=== PATIENT | female | born 1980 | race Caucasian/White ===

== ENCOUNTER 2024-09-06 11:58 | Inpatient (IN) | payer MEDICARE, MEDICAID, SELFPAY ==
[2024-09-06] VITALS (8 sets, daily range): BP systolic 132–192; BP diastolic 68–100; PULSE 69–88; RESP 16–18; TEMP 36.6–37.2; O2SAT 97–99; BMI 31.7
[2024-09-06 12:33] LABS: Bacteria 0 SEEN /hpf (None Seen); Mucous, Urine 0 SEEN /hpf (<or=2+); Red Blood Cells-Urine 0 SEEN /hpf (0-5); Squamous Epithelial Cells - UA 0 SEEN /hpf (5-10)
[2024-09-06 12:34] LABS: Color, Urine Yellow (Yellow); Glucose, Dipstick Normal (Normal); Ketone-Dipstick Negative (Negative); Leukocyte Esterase-Dipstick 500 /ul (Negative); Nitrite-Dipstick Positive (Negative); Occult Blood-Urine 150 /ul (Negative); Protein-Dipstick 500 mg/dl (Negative); Urine Bilirubin Dipstick Negative (Negative); Urine Clarity Turbid (Clear); Urine Urobilinogen Normal (Normal)
[2024-09-06 12:34] LABS: Absolute Lymphocyte Count 1.32 X10^3/uL (0.83-4.51); Absolute Neutrophil Count 17.3 X10^3/uL (2.0-7.7); Basophil# 0.08 X10^3/uL; Basophil% 0.4 % (0-1); Eosinophil# 0.07 X10^3/uL; Eosinophils% 0.3 % (0-5); Hematocrit 42.4 % (37-47); Hemoglobin 14.9 g/dL (12.0-15.0); Lymphocyte # 1.32 X10^3/ul (0.83-4.51); Lymphocyte % 6.6 % (19-41); Mean Corp Hgb Conc 35.1 g/dL (32-36); Mean Corpuscular Hgb 35.1 pg (27.0-32.0); Mean Corpuscular Volume 99.8 fL (81-99); Mean Platelet Vol. 10.1 fl (6.2-12.0); Monocyte# 1.04 X10^3/uL; Monocyte% 5.2 % (0-10); NRBC Flagged by Analyzer 0 % (0-5); Neutrophil # 17.34 X10^3/uL (2.7-7.7); Neutrophil % 86.6 % (47-70); Platelet Count 281 K/mm3 (150-450); RBC Distribution Width CV 12.6 % (11.6-14.6); RBC Distribution Width SD 45.5 fl (35.1-43.9); Red Blood Count 4.25 M/mm3 (4.2-5.4)
[2024-09-06 12:40] LABS: White Blood Cells >100 SEEN /hpf (0-5)
--- NOTE | 2024-09-06 13:14 | EDS_ITS ---
HPI History of Present Illness Chief Complaint: Complaint Detail of Chief Complaint: Recurrent urinary tract infection Informant: patient and spouse/S.O. Onset/Context/Timing Onset: Yesterday Context: Sudden Onset Timing: Intermittent Quality: Frequency and burning with urination Location: Urologic Maximum Severity: Moderate Worsened by: Urination Relieved by: Nothing Associated Symptoms Associated Symptoms: Suprapubic discomfort Narrative Narrative: Patient is a 44-year-old woman who has a history of kidney failure and is a recipient of a pancreas and liver. She presents with dysuria and frequency. She was treated with Macrobid initially for UTI diagnosed at [facility] in July. Creatinine was 1.04 on August 03 with an estimated GFR 68. Patient started taking Macrobid which she had leftover from her visit to the urgent care in July. She denied objective fever. She did have subjective fever with chills. She denies nausea, vomiting or diarrhea. She denies lower abdominal pain. There is no history of trauma. Prior similar symptoms: Yes Recent Illness/Hospitalization: Yes [facility] Home Medications ?Medication ?Instructions ?Recorded ?Last Taken ?Type Acetazolamide 250 mg PO BID 05/28/13 Unknown History Brimonidine 1 drp BID 05/28/13 Unknown History Dorzolamide Hydrochloride/Ti 1 drp DAILY 05/28/13 Unknown History amlodipine 10 mg tablet 10 mg PO DAILY 05/28/13 06/02/13 History aspirin 81 mg chewable tablet 81 mg PO DAILY 05/28/13 Unknown History atropine 1 % eye drops 1 drp BID 05/28/13 Unknown History calcium acetate(phosphat bind) 667 3 cap BC TIDCM 05/28/13 Unknown History mg capsule epoetin eliz 10,000 unit/mL 1.1 ml SQ 05/28/13 Unknown History injection solution (Epogen) ergocalciferol (vitamin D2) 1,250 50,000 unit PO QMONTH 05/28/13 Unknown History mcg (50,000 unit) capsule (Vitamin D2) escitalopram oxalate 20 mg tablet 10 mg PO DAILY 05/28/13 Unknown History (Lexapro) furosemide 40 mg tablet 40 mg PO DAILY 05/28/13 Unknown History hydralazine 50 mg tablet 50 mg PO TID 05/28/13 Unknown History insulin aspart U-100 100 unit/mL 65 units SQ DAILY 05/28/13 Unknown History (3 mL) subcutaneous pen (Novolog FlexPen U-100 Insulin aspart) insulin glargine 100 unit/mL (3 50 units SQ DAILY 05/28/13 Unknown History mL) subcutaneous pen (Lantus Solostar U-100 Insulin) labetalol 300 mg tablet (Trandate) 300 mg PO BID 05/28/13 06/02/13 History latanoprost 0.005 % eye drops 1 drp QHS 05/28/13 Unknown History levetiracetam 750 mg tablet 375 mg PO BID 05/28/13 06/02/13 History (Keppra) lidocaine-prilocaine 2.5 %-2.5 % 1 applic topical PRN PRN FOR 05/28/13 Unknown History topical kit DIALYSIS TO [facility] losartan 100 mg tablet (Cozaar) 100 mg PO DAILY 05/28/13 06/02/13 History multivitamin with folic acid 400 1 tab PO DAILY 05/28/13 Unknown History mcg tablet (Thera) oxycodone-acetaminophen 7.5 mg-500 1 tab PO Q6H PRN PRN Pain 05/28/13 Unknown History mg tablet (Percocet) prednisolone acetate 1 % eye 1 drp 4X/DAY 05/28/13 Unknown History drops,suspension Allergy/AdvReac Type Severity Reaction Status Date / Time Heparin Analogues Allergy Unknown Verified 09/06/24 11:59 Penicillins Allergy Unknown Verified 09/06/24 11:59 Social History Smoking Status: Never smoker ROS [facility] ED Constitutional Constitutional ED: Reports chills, fever(s) and subjective; Denies sweats or weight loss Eyes Eyes: Reports other Details: Patient unable to see out of her right eye and has 25% vision in left eye. ; Denies blurry vision or change in vision ENT ENT ED: Denies ear pain or rhinorrhea Cardiovascular Cardiovascular: Denies chest pain or palpitations Respiratory/Chest Respiratory/Chest: Denies cough, dyspnea or dyspnea on exertion Gastrointestinal Gastrointestinal: Reports abdominal pain; Denies constipation, diarrhea, melena or vomiting Genitourinary Genitourinary ED: Reports dysuria and urinary frequency; Denies hematuria Musculoskeletal Musculoskeletal: Denies arthralgias, back pain, myalgias or neck pain Integumentary Denies rash Neurologic Neurologic: Denies headache(s) or paresthesias Psychiatric Psychiatric: Denies anxiety Hematologic/Lymphatic Hematologic/Lymphatic: Reports systems reviewed and no addt'l complaints, except as documented EXAM Physical Exam Const Vital Signs: 09/06/24 11:59 09/06/24 11:59 09/06/24 13:59 Temperature 98 F Temperature Source Temporal Pulse Rate 71 71 Respiratory Rate 16 18 Blood Pressure 192/89 H 179/100 H 140/69 H Blood Pressure Mean 123 126 92 Pulse Ox 97 Oxygen Delivery Method Room Air 09/06/24 15:00 Temperature Temperature Source Pulse Rate 77 Respiratory Rate 17 Blood Pressure 132/77 H Blood Pressure Mean 95 Pulse Ox Oxygen Delivery Method Positive well nourished and well developed Constitutional Narrative: BMI is 31.7. General Appearance ED: well developed and NAD; Negative for cyanotic, diaphoretic or pallor HEENT Reports moist mucous membranes HEENT Narrative: Head is atraumatic no cephalic. Ears normal. Nares patent. Eyes Negative for PERRL or EOMs intact bilaterally Eyes Narrative: Patient has abnormal. Right orbit due to blindness. General Eye ED: Negative for pale conjunctiva or scleral icterus Neck no lymphadenopathy, supple and no JVD Resp normal respiratory effort and clear to auscultation bilaterally Cardio regular rate, regular rhythm, S1 normal heart sound, S2 normal heart sound and no murmurs GI normal to inspection, nondistended, normoactive bowel sounds, non-tender, non- distended and no masses Palpation: soft and tender suprapubic Back/Spine no CVA tenderness Extremity normal to inspection General Extremety ED: Negative for edema or tenderness General Extremity: Negative for edema Neuro oriented x3 and CN's II-XII intact bilaterally Sensorium / Orientation: alert Psych mental status grossly normal Skin no rashes or lesions noted, no wounds and skin turgor normal General Skin Exam: Negative for jaundice or pallor MDM MDM MDM Narrative Medical decision making narrative: Concern patient has a urinary tract infection. Will obtain UA and because she is on immunosuppressive meds will obtain CBC to assess white count differential as well as H&H. If any of these are abnormal we will obtain further testing to assess for sepsis/endorgan dysfunction. Spoke to her mother, Rupal, she has taken cephalexin in the past with no reaction. Her reaction to penicillin is a rash. Lab Data Attestation: I reviewed the patient's lab results. Lab results narrative: White count is elevated 20.0 thousand with 86% segs no bands. H&H 14 9 and 42.4 with slightly elevated indices. Urinalysis reveals protein, blood, nitrites and leukoesterase. Microscopic reveals greater than 100 WBCs no bacteria. She however did start antibiotics. Labs: Laboratory Results - last 24 hr 09/06/24 09/06/24 09/06/24 12:22 12:29 13:05 WBC 20.0 H RBC 4.25 Hgb 14.9 Hct 42.4 MCV 99.8 H MCH 35.1 H MCHC 35.1 RDW Std Deviation 45.5 H RDW Coeff of Jeremi 12.6 Plt Count 281 MPV 10.1 Immature Gran % (Auto) 0.900 Neut % (Auto) 86.6 H Lymph % (Auto) 6.6 L Jay % (Auto) 5.2 Eos % (Auto) 0.3 Baso % (Auto) 0.4 Absolute Neuts (auto) 17.3 H Absolute Lymphs (auto) 1.32 Nucleated RBC % 0 Sodium 138 Potassium 3.7 Chloride 111 H Carbon Dioxide 22.0 Anion Gap 5 BUN 16 Creatinine 1.14 H Estim Creat Clear Calc 67.33 Est GFR (MDRD) Af Amer 67 Est GFR (MDRD) Non-Af 55 L BUN/Creatinine Ratio 14.0 Glucose 139 H Lactic Acid 1.7 Calcium 8.9 Total Bilirubin 0.70 AST 12 L ALT 18 Alkaline Phosphatase 46 Total Protein 7.0 Albumin 3.4 Globulin 3.6 Albumin/Globulin Ratio 0.9 Urine Color Yellow Urine Clarity Turbid Urine pH 6.0 Ur Specific [place] 1.020 Urine Protein 500 H Urine Glucose (UA) Normal Urine Ketones Negative Urine Occult Blood 150 H Urine Nitrite Positive H Urine Bilirubin Negative Urine Urobilinogen Normal Ur Leukocyte Esterase 500 H Urine RBC 0 SEEN Urine WBC >100 SEEN Ur Squamous Epith Cells 0 SEEN Urine Bacteria 0 SEEN Urine Mucus 0 SEEN Comprehensive metabolic panel with slight elevation in creatinine of 1.14 which is slightly elevated from August 03. Estimated GFR is 55. Glucose is slight elevated 139 within the normal CO2 anion gap. Management Discussion w/another healthcare provider: Hospitalist (Dr. Caro he was made aware of transplant physicians recommendation. Plan is MedSurg observation status.) and Warehouse Picker (Call was placed to the post renal pancreatic transplant team. Spoke with the nurse affiliated with this department. She placed a page to the on-call physician. Spoke with Dr. Juan C Gilbert) Treatment and Re-Evaluation :: Spoke with the renal pancreas transplant on-call physician for [facility]. He recommended admission. If cultures are negative she can be discharged home. He recommended holding the CellCept which was started April 29. He asked that the hospitalist contact the transplant team if her cultures are positive. The name of the physician I spoke to is Dr. 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, Hyperglycemia, Elevated serum creatinine, Elevated blood pressure reading with diagnosis of hypertension Prescriptions: No Action Acetazolamide 250 mg PO BID Patient Comments: DIURETIC OR GLAUCOMA amlodipine 10 MG tablet 10 mg PO DAILY Patient Comments: BLOOD PRESSURE aspirin 81 MG tablet,chewable 81 mg PO DAILY Patient Comments: HEART atropine 1 DROP bottle 1 drp Each Eye BID Patient Comments: EYE DROP furosemide 40 MG tablet 40 mg PO DAILY Patient Comments: WATER PILL latanoprost 1 DROP bottle 1 drp Right Eye QHS Patient Comments: EYE DROP lidocaine-prilocaine 1 EACH kit 1 applic topical PRN PRN (Reason: FOR DIALYSIS TO [facility]) Patient Comments: DIALYSIS prednisolone acetate 1 DROP drops,suspension 1 drp Each Eye 4X/DAY Patient Comments: STEROID hydralazine 50 MG tablet 50 mg PO TID Patient Comments: BLOOD PRESSURE levetiracetam [Keppra] 750 MG tablet 375 mg PO BID Patient Comments: SEIZURES ergocalciferol (vitamin D2) [Vitamin D2] 50,000 UNIT capsule 50,000 unit PO QMONTH Patient Comments: VITAMIN labetalol [Trandate] 300 MG tablet 300 mg PO BID Patient Comments: HEART losartan [Cozaar] 100 MG tablet 100 mg PO DAILY Patient Comments: POTASSIUM epoetin eliz [Epogen] 10,000 UNIT/ML solution 1.1 ml SQ Patient Comments: THREE TIMES A WEEK for dialysis oxycodone-acetaminophen [Percocet] 1 EACH tablet 1 tab PO Q6H PRN PRN (Reason: Pain) Patient Comments: PAIN escitalopram oxalate [Lexapro] 20 MG tablet 10 mg PO DAILY Patient Comments: ANTIDEPRESSANT insulin aspart U-100 [Novolog FlexPen U-100 Insulin] 100 UNITS/ML insulin pen 65 units SQ DAILY Patient Comments: DIABETES calcium acetate(phosphat bind) 667 MG capsule 3 cap BC TIDCM Patient Comments: CALCIUM SUPPLEMENT insulin glargine [Lantus Solostar U-100 Insulin] 100 UNITS/ML insulin pen 50 units SQ DAILY Patient Comments: DIABETES multivitamin with folic acid [Thera] 1 TABLET tablet 1 tab PO DAILY Patient Comments: MULTI VITAMIN Brimonidine 1 drp Right Eye BID Patient Comments: BRIMONIDINE 0.2% FOR EYE Dorzolamide Hydrochloride/Ti 1 drp Right Eye DAILY Patient Comments: EYE Primary Care Provider: Mary Peralta Referrals: Mary Peralta MD [Primary Care Provider] - Print Language: Prydeinig Disposition Disposition: Acute Care Hospital [facility]
[2024-09-06] MEDS: Ceftriaxone 2 GM in 0.9% Normal Saline (50mL MB+) 50 ML IV (13:34)
[2024-09-06 13:42] LABS: ALB/GLOB Ratio 0.9 RATIO (0.9-2.4); AST(SGOT) 12 U/L (15-37); Alanine Aminotransfer ALT/SGPT 18 U/L (13-56); Albumin, Serum 3.4 g/dL (3.2-5.0); Alkaline Phosphatase 46 U/L (45-117); Anion Gap 5 (5-15); BUN 16 mg/dL (7-18); Calcium,Total 8.9 mg/dL (8.5-10.1); Chloride 111 mmol/L (98-107); Creatinine, Serum 1.14 mg/dL (0.55-1.02); EST Glomerular Filtration Rate 55 mL/min (>60); Est Glom Filt Rate - Afr Amer 67 mL/min (>60); Estimated Creatinine Clearance 67.33 ml/min; Globulin 3.6 g/dL (2.2-4.2); Glucose 139 mg/dL (74-106); Potassium 3.7 mmol/L (3.5-5.1); Sodium Level 138 mmol/L (136-145)
[2024-09-06 13:43] LABS: Lactic Acid 1.7 mmol/L (0.4-1.9)
--- NOTE | 2024-09-06 16:14 | PCM.HP.STD ---
HPI - General General Date of Admission: 09/06/24 Date of Service: 09/06/24 Chief Complaint: Dysuria and urinary frequency HPI Narrative KAM PEDERSON, is a 44 F who presented to the emergency department [facility] on 09/06/2024 with the chief complaint of urinary frequency and dysuria with associated suprapubic discomfort. Patient states before she went to [place] which was about 2 weeks ago she started having dysuria and urinary frequency and was placed on Macrobid. Her symptoms did not improve and she subsequently was placed on Macrobid and ciprofloxacin. She stated an urgent care told her that she grew out E. coli and other bacteria and she is not sure of the culture entirely. She stated she did start to feel better on the Macrobid and ciprofloxacin. The ciprofloxacin was a 5-day course and it sounds like the Macrobid was a longer course. She stated she finished the Cipro and then the Macrobid and had been symptom-free for about 3 days and then her symptoms came back. She is immunocompromise at baseline as she has a history of kidney and pancreas transplant. Her symptoms started again on Saturday and she had some extra Macrobid so she started this but her symptoms continued to get worse so she decided to present to the emergency department. Vital signs on presentation showed temperature of 98, heart rate 71, respiratory 16, initial blood pressure was 190/89 with a repeat of 140/69, and pulse ox is 97% on room air. CBC shows a significant leukocytosis with a white count of 20,000, she does have a left shift with an 86.6% neutrophilia. Chemistry panel shows normal electrolytes with a serum creatinine of 1.14. She states a week ago she was about 2.0. Serum glucose was 139 and she states she is not no longer insulin-dependent. Liver functions were unremarkable. Urine was turbid with a specific gravity of 1.02, 500 of protein, 150 of occult blood, positive for nitrites and leuk esterase with greater than 100 white cells per high-powered field but no bacteria. I suspect bacteria is negative as she has been on Macrobid recently. With her markedly elevated white count and a UA which is consistent for infection along with her history of transplant of both her kidney and pancreas Dr. Judd discussed the case with the transplant team at [facility] and spoke to the on-call physician at [facility] for the pancreas and kidney team. They asked that we hold her CellCept and treat her with antibiotics if her urine culture is positive they would like to be contacted and made aware for further discussion. However, after med reconciliation it does not appear she is currently taking CellCept. [facility] Medical History (Updated 09/06/24 @ 16:[address] Crystal Caro, DO) Hypertension Cerebrovascular disease Partial blindness History of retinal hemorrhage Seizure DM type 1 (diabetes mellitus, type 1) Chronic renal disease, stage IV Home Medications ?Medication ?Instructions ?Recorded ?Last Taken ?Type Acetazolamide 250 mg PO BID 05/28/13 Unknown History Brimonidine 1 drp BID 05/28/13 Unknown History amlodipine 10 mg tablet 10 mg PO DAILY 05/28/13 06/02/13 History aspirin 81 mg chewable tablet 81 mg PO DAILY 05/28/13 Unknown History atropine 1 % eye drops 1 drp BID 05/28/13 Unknown History ergocalciferol (vitamin D2) 1,250 50,000 unit PO QMONTH 05/28/13 Unknown History mcg (50,000 unit) capsule (Vitamin D2) escitalopram oxalate 20 mg tablet 10 mg PO DAILY 05/28/13 Unknown History (Lexapro) hydralazine 50 mg tablet 50 mg PO TID 05/28/13 Unknown History labetalol 300 mg tablet (Trandate) 300 mg PO BID 05/28/13 06/02/13 History multivitamin with folic acid 400 1 tab PO DAILY 05/28/13 Unknown History mcg tablet (Thera) prednisolone acetate 1 % eye 1 drp 4X/DAY 05/28/13 Unknown History drops,suspension carvedilol 6.25 mg tablet 6.25 mg PO Q12H 09/06/24 Unknown History famotidine 20 mg tablet 20 mg PO BID 09/06/24 Unknown History lisinopril 5 mg tablet 5 mg PO BID 09/06/24 Unknown History norethindrone 1 mg-ethinyl 1 tab PO DAILY 09/06/24 Unknown History estradiol 20 mcg (21)-iron 75 mg (7) tablet ([place] Fe 09/07 (28)) tacrolimus 1 mg capsule, 1 mg PO Q12H 09/06/24 Unknown History immediate-release valacyclovir 1 gram tablet 1,000 mg PO DAILY 09/06/24 Unknown History Allergy/AdvReac Type Severity Reaction Status Date / Time Heparin Analogues Allergy Unknown Verified 09/06/24 11:59 Penicillins Allergy Unknown Verified 09/06/24 11:59 Family History (Updated 09/06/24 @ 16:[address] Crystal Caro DO) Other Diabetes Heart disease Hypertension Surgical History (Updated 09/06/24 @ 16:[address] 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 Crystal Caro DO) Smoking Status: Never smoker alcohol intake: never substance use type: does not use ROS Constitutional Constitutional: Denies anorexia, change in weight, chills, fatigue, fever(s), malaise, night sweats, weakness or other Eyes Eyes: Reports loss of vision; Denies blurry vision, change in eye color, change in vision, discharge from eye(s), double vision, erythema, eye pain or other ENT HEENT: Denies abnormal hearing, dysphagia, ear pain, epistaxis, headache(s), hearing loss, nasal congestion, nasal discharge, post nasal drip, sinus pressure, sore throat or other Cardiovascular Cardiovascular: Denies chest pain, claudication, dyspnea on exertion, edema, lightheadedness, orthopnea, palpitations, paroxysmal nocturnal dyspnea, rapid heart rate, syncope or other Respiratory/Chest Respiratory/Chest: Denies cough, dyspnea, excessive phlegm production, hemoptysis, productive cough, shortness of breath at rest, shortness of breath with exertion, wheezing or other Gastrointestinal Gastrointestinal: Reports abdominal pain; Denies coffee ground emesis, constipation, diarrhea, dyspepsia, hematemesis, hematochezia, loose stools, melena, nausea, vomiting or other Genitourinary Genitourinary: Reports burning urination, dysuria, urinary frequency and other Details: Suprapubic abdominal pain ; Denies difficulty urinating, hematuria, nocturia, urinary hesitancy, urinary incontinence or urinary urgency Musculoskeletal Musculoskeletal: Denies arthralgias, back pain, joint pain, joint stiffness, joint swelling, myalgias, neck pain or other Neurologic Neurologic: Denies abnormal gait, abnormal speech, confusion, disequilibrium, dizziness, focal weakness, headache(s), numbness, paresthesias, seizure-like activity, seizures, syncope, tingling, tremor(s) or other Psychiatric Psychiatric: Reports anxiety; Denies depression, homicidal ideation, suicidal ideation or other Endocrine Endocrinology: Denies change in body appearance, cold intolerance, excessive sweating, heat intolerance, polydipsia, polyuria or other Hematologic/Lymphatic Hematologic/Lymphatic: Denies anemia, easy bleeding, easy bruising, lymphadenopathy or other Allergic/Immunologic Allergic/Immunologic: Denies rhinitis, hives, eczemia, asthma or other Vital Signs Vital Signs Vital Signs: 09/06/24 11:59 09/06/24 11:59 09/06/24 13:59 Temperature 98 F Temperature Source Temporal Pulse Rate 71 71 Respiratory Rate 16 18 Blood Pressure 192/89 H 179/100 H 140/69 H Blood Pressure Mean 123 126 92 Pulse Ox 97 Oxygen Delivery Method Room Air 09/06/24 15:00 Temperature Temperature Source Pulse Rate 77 Respiratory Rate 17 Blood Pressure 132/77 H Blood Pressure Mean 95 Pulse Ox Oxygen Delivery Method Weight Weight: 83.8 kg Body Mass Index (BMI) 31.7 Physical Exam Const alert and oriented x3 Constitutional Narrative: Obese, middle-aged, white female, appears comfortable at this time, significant other at bedside, appears comfortable, nontoxic, nursing at bedside HEENT normocephalic, head/scalp atraumatic, hearing grossly normal bilaterally and moist oral mucous membranes HEENT Narrative: Mallampati 3, no thrush Eyes EOMs intact bilaterally Eyes Narrative: No scleral icterus, patient with impaired vision bilaterally Resp normal respiratory effort, no retractions, no use of accessory muscles and clear to auscultation bilaterally Auscultation: Negative for rales, rhonchi or wheezes Cardio regular rate, regular rhythm, S1 normal heart sound, S2 normal heart sound, no rub, no gallops and no clicks; Negative for no murmurs Cardio Narrative: 2 out of 6 systolic murmur GI normal to inspection, nondistended, normoactive bowel sounds and soft to palpation GI Narrative: Mild suprapubic tenderness present Extremity no clubbing, cyanosis or edema Extremity Narrative: Pedal pulses are 2+, radial pulses are 2+ Neuro oriented x3, moves all extremities and no focal motor deficits Speech: speech normal Psych affect normal Psych Narrative: Mildly anxious, eye contact is good, patient interacts appropriately Results Lab / Micro Data 09/06/24 12:29 09/06/24 13:05 Labs: Laboratory Results - last 24 hr 09/06/24 12:22: Urine Color Yellow, Urine Clarity Turbid, Urine pH 6.0, Ur Specific [place] 1.020, Urine Protein 500 H, Urine Glucose (UA) Normal, Urine Ketones Negative, Urine Occult Blood 150 H, Urine Nitrite Positive H, Urine Bilirubin Negative, Urine Urobilinogen Normal, Ur Leukocyte Esterase 500 H, Urine RBC 0 SEEN, Urine WBC >100 SEEN, Ur Squamous Epith Cells 0 SEEN, Urine Bacteria 0 SEEN, Urine Mucus 0 SEEN 09/06/24 12:29: WBC 20.0 H, RBC 4.25, Hgb 14.9, Hct 42.4, MCV 99.8 H, MCH 35.1 H, MCHC 35.1, RDW Std Deviation 45.5 H, RDW Coeff of Jeremi 12.6, Plt Count 281, MPV 10.1, Immature Gran % (Auto) 0.900, Neut % (Auto) 86.6 H, Lymph % (Auto) 6.6 L, [place] % (Auto) 5.2, Eos % (Auto) 0.3, Baso % (Auto) 0.4, Absolute Neuts (auto) 17.3 H, Absolute Lymphs (auto) 1.32, Nucleated RBC % 0 09/06/24 13:05: Sodium 138, Potassium 3.7, Chloride 111 H, Carbon Dioxide 22.0, Anion Gap 5, BUN 16, Creatinine 1.14 H, Estim Creat Clear Calc 67.33, Est GFR (MDRD) Af Amer 67, Est GFR (MDRD) Non-Af 55 L, BUN/Creatinine Ratio 14.0, Glucose 139 H, Lactic Acid 1.7, Calcium 8.9, Total Bilirubin 0.70, AST 12 L, ALT 18, Alkaline Phosphatase 46, Total Protein 7.0, Albumin 3.4, Globulin 3.6, Albumin/Globulin Ratio 0.9 Assessment & Plan Assessment/Plan (1) Abnormal urinalysis: (2) Elevated blood pressure reading with diagnosis of hypertension: (3) Elevated serum creatinine: (4) Leukocytosis: (5) Pyuria: PLAN: Plan Abnormal UA with pyuria -Highly suspect this will be a complicated UTI with transplant history -No bacteria noted however patient's been on Macrobid -Patient had been on Macrobid and ciprofloxacin as an outpatient and has penicillin allergy -Will start meropenem 1 g Q8 -Cultures sent -If cultures are positive we are to contact [facility] transplant team--> Case was discussed with Dr. Juan C Ramirez at [facility] who is on-call and asked that they be contacted if the cultures are positive -Contact infectious disease given history of transplant Leukocytosis -Secondary to the above -Should trend down with antibiotics -Blood and urine cultures are pending Elevated serum creatinine -At 1.14 -Patient states about 2 weeks ago her creatinine was 2. Sounds like she fluctuates significantly -Will hydrate with 1 L normal saline as a specific gravity is slightly high -patient is on a single dolomite at home for her glaucoma Glaucoma with blindness -Continue home eyedrops -Significant other to stay with her while she is hospitalized as she gets very anxious related to her blindness and other medical issues Normal mammogram May the -Resolved with pancreatic transplant History of end-stage renal disease -Resolved since renal transplant History of renal and pancreatic transplant -We were instructed to hold CellCept however it does not appear she is currently on this -Continue tacrolimus -Continue valacyclovir and -It does not appear she is on any prednisone either Elevated blood pressure with history of hypertension -Continue home antihypertensives -As needed hydralazine available Seizure disorder -Sound like it is nonepileptic -Patient is not on any AEDs any longer -Patient reports are driven by anxiety GERD -Continue home famotidine Depression/anxiety -Continue home Lexapro DVT prophylaxis -Patient is allergic to heparin products -SCDs CODE STATUS -Full code Charges/Coding Visit Charges Inpatient E&M: 07323 Init Hosp L2
--- NOTE | 2024-09-06 16:59 | ED.RN ---
This RN attempted to do a med list [address] Caro was in the chart. This RN asked Dr Caro to close out of the med list and she stated she would. This RN still unable to complete med list because it is showing that she is in the chart.
--- NOTE | 2024-09-06 17:00 | CASEMGMT ---
Care Management Face to Face with patient for initial transition planning/care coordination assessment in the ED.? This marketing copywriter introduced self and role at [facility]. Patient lying in bed, asleep, not alert and/or oriented. Patient willing to participate in assessment and is able to answer all questions for patient appropriately.? Care providers, pharmacy, and demographics verified. Admitting Diagnosis: Complicated UTI with history of kidney and pancreas transplant Other diagnosis history: HTN, Hyperglycemia, history of kidney failure. PCP: Dr. Mary Peralta Specialists: Dr. Marin with the [facility], accounting teacher: Dr. Delgado, Transplant team through [facility]. Preferred Pharmacy: [facility] on [address] in [place]. Insurance: Medicare Part A and B and Medicaid. Prescription Benefit:?Yes Living Will/HPOA: No and not interested at this time. LNOK: Patient?s mother, Brandee Gonzalez.? Patient does not have any children. Living Arrangements: Patient currently lives with her mother, and patient?s significant other, Ronal. Patient denied having any environmental barriers or concerns at home. Transportation: No barriers identified. DME: (Some DME is shared by both patient as well as patient?s mother): Vertical platform lift inside patient?s garage, grab bars, shower chair, 2 walkers, motorized scooter, wheelchair, transport wheelchair, quad cane, rollator and a lift chair. HHC: Yes, through [facility]. Patient has a home health aide who comes out to help her with ADL?s and IADL?s M-F, 4 hours each day. SNF/Rehab: Denied any previous SNF or Rehab admissions. Community Resources: None currently and patient not interested. Behavioral Health History: Denied any formal diagnosis however patient stated anxiety. Patient goals: To be discharged home when medically ready. Disposition Plan: admission to acute; RN CM/SW to follow for discharge planning needs that may arise. Nanette Gonzalez, BALLOON ARTIST, HAMMER FITTER
[2024-09-06] MEDS: 0.9% Normal Saline (1000mL) 1,000 ML 75 ML IV (21:41)
[2024-09-06] MEDS: Meropenem 1 GM in 0.9% Normal Saline (100mL MB+) 100 ML IV (21:41)
[2024-09-06] MEDS: Carvedilol 6.25 MG Tablet PO (21:43)
[2024-09-06] MEDS: prednisoLONE eye drops (5 mL) 1 DROP OPTH.BTL 1 DRP EACH EYE (21:45)
[2024-09-06] MEDS: BRIMONIDINE 0.2% 5ML BOTTLE 1 DRP RIGHT EYE (21:45)
[2024-09-06] MEDS: Tacrolimus Anhydrous 1 MG Capsule PO (21:46)
[2024-09-06] MEDS: AcetaZOLAMIDE 250 MG Tablet PO (21:46)
[2024-09-06] MEDS: Lisinopril 5 MG Tablet PO (21:46)
[2024-09-06] MEDS: Famotidine 20 MG Tablet PO (21:46)
[2024-09-06] MEDS: Acyclovir 200 MG Capsule 400 MG PO (21:47)
[2024-09-06] MEDS: amLODIPine 10 MG Tablet PO (21:51)
[2024-09-07 04:00] VITALS: BP 121/60; PULSE 65; RESP 16; TEMP 36.9; O2SAT 99
[2024-09-07] MEDS: Meropenem 1 GM in 0.9% Normal Saline (100mL MB+) 100 ML IV ×3 (04:58→21:51)
[2024-09-07 06:45] LABS: Absolute Lymphocyte Count 2.15 X10^3/uL (0.83-4.51); Absolute Neutrophil Count 7.8 X10^3/uL (2.0-7.7); Basophil# 0.07 X10^3/uL; Basophil% 0.6 % (0-1); Eosinophil# 0.12 X10^3/uL; Eosinophils% 1.1 % (0-5); Hematocrit 39.2 % (37-47); Hemoglobin 13.4 g/dL (12.0-15.0); Lymphocyte # 2.15 X10^3/ul (0.83-4.51); Lymphocyte % 18.9 % (19-41); Mean Corp Hgb Conc 34.2 g/dL (32-36); Mean Corpuscular Hgb 34.1 pg (27.0-32.0); Mean Corpuscular Volume 99.7 fL (81-99); Mean Platelet Vol. 10.2 fl (6.2-12.0); Monocyte# 1.14 X10^3/uL; NRBC Flagged by Analyzer 0 % (0-5); Neutrophil # 7.76 X10^3/uL (2.7-7.7); Neutrophil % 68.3 % (47-70); Platelet Count 257 K/mm3 (150-450); RBC Distribution Width CV 12.4 % (11.6-14.6); RBC Distribution Width SD 45.6 fl (35.1-43.9); Red Blood Count 3.93 M/mm3 (4.2-5.4); White Blood Count 11.4 K/mm3 (4.4-11.0)
[2024-09-07 07:17] LABS: AST(SGOT) 11 U/L (15-37); Alanine Aminotransfer ALT/SGPT 15 U/L (13-56); Albumin, Serum 3.2 g/dL (3.2-5.0); Alkaline Phosphatase 40 U/L (45-117); Anion Gap 6 (5-15); BUN 14 mg/dL (7-18); BUN/Creat Ratio 14.8 RATIO (10-20); Calcium,Total 8.7 mg/dL (8.5-10.1); Chloride 113 mmol/L (98-107); Creatinine, Serum 0.94 mg/dL (0.55-1.02); EST Glomerular Filtration Rate 69 mL/min (>60); Est Glom Filt Rate - Afr Amer 84 mL/min (>60); Estimated Creatinine Clearance 81.65 ml/min; Globulin 3.3 g/dL (2.2-4.2); Glucose 86 mg/dL (74-106); Magnesium 1.7 mg/dL (1.6-2.6); Phosphorus 3.1 mg/dL (2.5-4.9); Potassium 3.7 mmol/L (3.5-5.1); Protein, Total 6.5 g/dL (6.4-8.2); Sodium Level 137 mmol/L (136-145)
[2024-09-07] MEDS: Carvedilol 6.25 MG Tablet PO (07:58)
[2024-09-07] MEDS: Escitalopram Oxalate 10 MG Tablet PO (07:59)
[2024-09-07] MEDS: Famotidine 20 MG Tablet PO ×2 (07:59→21:53)
[2024-09-07] MEDS: Aspirin 81 MG TAB.CHEW PO (07:59)
[2024-09-07] MEDS: Acyclovir 200 MG Capsule 400 MG PO ×2 (08:00→21:52)
[2024-09-07] MEDS: Lisinopril 5 MG Tablet PO ×2 (08:01→21:52)
[2024-09-07] MEDS: AcetaZOLAMIDE 250 MG Tablet PO ×2 (08:01→21:52)
[2024-09-07] MEDS: BRIMONIDINE 0.2% 5ML BOTTLE 1 DRP RIGHT EYE ×2 (08:02→21:52)
[2024-09-07] MEDS: prednisoLONE eye drops (5 mL) 1 DROP OPTH.BTL 1 DRP EACH EYE ×4 (08:04→21:56)
[2024-09-07 08:18] VITALS: BP 126/60; PULSE 60; RESP 18; TEMP 36.9; O2SAT 95
[2024-09-07 08:33] VITALS: O2SAT 96
--- NOTE | 2024-09-07 09:15 | NURSING ---
ultrasound called and spoke to this RN at about 0830am. Wants pt to drink 20oz of water as quick as see can and hold it for ultrasound. Pt said she is familar and has done this before. Pt to be brought down at 0915, CHEO Ribera aware.
[2024-09-07] MEDS: Tacrolimus Anhydrous 1 MG Capsule PO ×2 (10:19→21:53)
[2024-09-07] MEDS: Multivitamins,Therapeutic Tablet 1 TABLET PO (10:20)
--- NOTE | 2024-09-07 10:40 | PN_ITS ---
Subjective Subjective Patient seen and examined. His significant other was by car. She had no complaints and had an uneventful night. She denied any fever or chills, palpitations or dizziness, nausea vomiting or any other symptoms. Review of systems otherwise negative. Objective Data Objective Data Vital Signs: Vital Signs Temp Pulse Resp BP Pulse Ox O2 Del Method 98.4 F 60 18 126/60 H 96 Room Air 09/07/24 08:18 09/07/24 08:18 09/07/24 08:18 09/07/24 08:18 09/07/24 08:33 09/07/24 08:33 Oxygen Delivery Method Room Air Weight: 184 lb 11.958 oz Body Mass Index (BMI) 31.7 Intake & Output: Intake and Output for Last 24 Hours 09/05/24 09/06/24 09/07/24 23:59 23:59 23:59 Intake Total 550 / 850 690 / 690 Output Total 400 / 400 300 / 300 Balance 150 / 450 390 / 390 Lab / Micro Data 09/07/24 05:48 09/07/24 05:48 Labs: Laboratory Results - last 24 hr 09/06/24 12:22: Urine Color Yellow, Urine Clarity Turbid, Urine pH 6.0, Ur Specific [place] 1.020, Urine Protein 500 H, Urine Glucose (UA) Normal, Urine Ketones Negative, Urine Occult Blood 150 H, Urine Nitrite Positive H, Urine Bilirubin Negative, Urine Urobilinogen Normal, Ur Leukocyte Esterase 500 H, Urine RBC 0 SEEN, Urine WBC >100 SEEN, Ur Squamous Epith Cells 0 SEEN, Urine Bacteria 0 SEEN, Urine Mucus 0 SEEN 09/06/24 12:29: WBC 20.0 H, RBC 4.25, Hgb 14.9, Hct 42.4, MCV 99.8 H, MCH 35.1 H , MCHC 35.1, RDW Std Deviation 45.5 H, RDW Coeff of Jeremi 12.6, Plt Count 281, MPV 10.1, Immature Gran % (Auto) 0.900, Neut % (Auto) 86.6 H, Lymph % (Auto) 6.6 L, [place] % (Auto) 5.2, Eos % (Auto) 0.3, Baso % (Auto) 0.4, Absolute Neuts (auto) 17.3 H, Absolute Lymphs (auto) 1.32, Nucleated RBC % 0 09/06/24 13:05: Sodium 138, Potassium 3.7, Chloride 111 H, Carbon Dioxide 22.0, Anion Gap 5, BUN 16, Creatinine 1.14 H, Estim Creat Clear Calc 67.33, Est GFR (MDRD) Af Amer 67, Est GFR (MDRD) Non-Af 55 L, BUN/Creatinine Ratio 14.0, G lucose 139 H, Lactic Acid 1.7, Calcium 8.9, Total Bilirubin 0.70, AST 12 L, ALT 18, Alkaline Phosphatase 46, Total Protein 7.0, Albumin 3.4, Globulin 3.6, Albumin/Globulin Ratio 0.9 09/07/24 05:48: WBC 11.4 H, RBC 3.93 L, Hgb 13.4, Hct 39.2, MCV 99.7 H, MCH 34.1 H, MCHC 34.2, RDW Std Deviation 45.6 H, RDW Coeff of Jeremi 12.4, Plt Count 257, MPV 10.2, Immature Gran % (Auto) 1.100 H, Neut % (Auto) 68.3, Lymph % (Auto) 18.9 L, [place] % (Auto) 10.0, Eos % (Auto) 1.1, Baso % (Auto) 0.6, Absolute Neuts (auto) 7.8 H, Absolute Lymphs (auto) 2.15, Nucleated RBC % 0, Sodium 137, Potassium 3.7, Chloride 113 H, Carbon Dioxide 18.0 L, Anion Gap 6, BUN 14, Creatinine 0.94, Estim Creat Clear Calc 81.65, Est GFR (MDRD) Af Amer 84, Est GFR (MDRD) Non-Af 69, BUN/Creatinine Ratio 14.8, Glucose 86, Calcium 8.7, Phosphorus 3.1, Magnesium 1.7, Total Bilirubin 0.70, AST 11 L, ALT 15, Alkaline Phosphatase 40 L, Total Protein 6.5, Albumin 3.2, Globulin 3.3, Albumin/Globulin Ratio 1.0 Micro: Microbiology 09/06/24 12:22 Urine, Random Urine Culture - Preliminary Culture exhibits no growth. Physical Exam Const alert, oriented x3, no apparent distress and well nourished General Appearance: cooperative and well developed HEENT normocephalic, head/scalp atraumatic, moist oral mucous membranes and oropharynx normal Eyes PERRL and EOMs intact bilaterally Neck no lymphadenopathy, supple and no JVD Lymph Lymphatic: no lymphadenopathy noted Resp normal respiratory effort, normal air movement and clear to auscultation bilaterally Cardio regular rate, regular rhythm, S1 normal heart sound, S2 normal heart sound and no murmurs GI normal to inspection, nondistended, normoactive bowel sounds, soft to palpation, non-tender and non-distended Extremity normal capillary refill, no clubbing, cyanosis or edema and no calf tenderness General Extremity: no tenderness to palpation of joints or extremities Skin General Skin Exam: no breakdown Neuro CN's II-XII intact bilaterally, no focal motor deficits and no sensory deficits noted Motor Exam: strength 5/5 throughout and general weakness Psych thought process normal, cooperative and affect normal Appearance: appropriate Assessment & Plan Assessment/Plan (1) Abnormal urinalysis: (2) Elevated blood pressure reading with diagnosis of hypertension: PLAN: Plan #UTI in the setting of ESRD with renal transplant * Was admitted with a complaint of urinary frequency and dysuria and suprapubic discomfort. * She had been on Macrobid on outpatient basis after she went to [place] about 2 weeks ago and started having the above-mentioned symptoms. His symptoms did not improve so ciprofloxacin was added on. * Symptoms persisted so he came into the ED. Urinalysis showed evidence of UTI. * On IV meropenem. Her CellCept was held on admission. * Admitting hospitalist to discuss with her renal transplant team at [facility] and they recommended to continue on the antibiotics and to contact her transplant team with culture results * ID also contacted. * WBC is down to 11.4 from 20 yesterday. * Urine culture showing no growth so far. Will await for confirmatory cultures. * #Elevated creatinine: Improved. Creatinine is down to 0.9. Gentle hydration with IV fluids. #History of glaucoma: Has blindness in the right eye. On home eyedrops. #History of renal and pancreatic transplant * Patient states the pancreatic transplant was for diabetes. CellCept held as per her transplant team at [facility] Main campus. It is documented in the H&P that she is not currently on CellCept but however patient tells me that she has been taking his CellCept and last took it 1 day prior to admission. * On tacrolimus and valacyclovir. #Hypertension: on amlodipine and carvedilol as well as lisinpril #Seizure disorder: Not on any seizure meds. #GERD: On PPI #Anxiety and depression: On Lexapro DVT prophylaxis: SCDs. Charges/Coding Visit Charges Inpatient E&M: 03320 Subs Hosp L2
[2024-09-07 14:00] VITALS: BP 106/45; PULSE 59; RESP 17; TEMP 36.7; O2SAT 98
--- NOTE | 2024-09-07 16:20 | PCM.CONS.GEN ---
Assessment & Plan Assessment/Plan (1) UTI (urinary tract infection): PLAN: Cxs pending, feeling better, cont cindy. 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 Was on cipro and macrobid without improvement. No fever, no abd pain, no n/v/d. Came to ED, admitted on meropenem, feeling better today. Full ROS performed and neg except as noted above. [facility] Medical History (Updated 09/07/24 @ 16:[address] Antony Tatum MD) Hypertension Cerebrovascular disease Partial blindness History of retinal hemorrhage Seizure DM type 1 (diabetes mellitus, type 1) Chronic renal disease, stage IV Home Medications ?Medication ?Instructions ?Recorded ?Last Taken ?Type Acetazolamide 250 mg PO BID 05/28/13 Unknown History Brimonidine 1 drp BID 05/28/13 Unknown History amlodipine 10 mg tablet 10 mg PO DAILY 05/28/13 06/02/13 History aspirin 81 mg chewable tablet 81 mg PO DAILY 05/28/13 Unknown History atropine 1 % eye drops 1 drp BID 05/28/13 Unknown History ergocalciferol (vitamin D2) 1,250 2,000 unit PO DAILY VITAMIN 05/28/13 Unknown History mcg (50,000 unit) capsule (Vitamin D2) escitalopram oxalate 20 mg tablet 10 mg PO DAILY 05/28/13 Unknown History (Lexapro) hydralazine 50 mg tablet 50 mg PO TID 05/28/13 Unknown History labetalol 300 mg tablet (Trandate) 300 mg PO BID 05/28/13 06/02/13 History multivitamin with folic acid 400 1 tab PO DAILY 05/28/13 Unknown History mcg tablet (Thera) prednisolone acetate 1 % eye 1 drp 4X/DAY 05/28/13 Unknown History drops,suspension carvedilol 6.25 mg tablet 6.25 mg PO Q12H 09/06/24 Unknown History famotidine 20 mg tablet 20 mg PO BID 09/06/24 Unknown History lisinopril 5 mg tablet 5 mg PO BID 09/06/24 Unknown History norethindrone 1 mg-ethinyl 1 tab PO DAILY 09/06/24 Unknown History estradiol 20 mcg (21)-iron 75 mg (7) tablet (Blisovi Fe 09/07 (28)) tacrolimus 1 mg capsule, 1 mg PO Q12H 09/06/24 Unknown History immediate-release valacyclovir 1 gram tablet 1,000 mg PO DAILY 09/06/24 Unknown History Allergy/AdvReac Type Severity Reaction Status Date / Time Heparin Analogues Allergy Unknown Verified 09/06/24 11:59 Penicillins Allergy Unknown Verified 09/06/24 11:59 Family History Other Diabetes Heart disease Hypertension Surgical History (Updated 09/07/24 @ 16:[address] 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 Kidney transplant recipient Social History Smoking Status: Never smoker alcohol intake: never substance use type: does not use Physical Exam Const alert, oriented x3 and no apparent distress General Appearance: cooperative HEENT normocephalic and head/scalp atraumatic Eyes PERRL and EOMs intact bilaterally Neck supple and No nodes Resp normal air movement and clear to auscultation bilaterally Cardio regular rate and regular rhythm GI soft to palpation, non-tender and non-distended Skin no rashes or lesions noted Neuro CN's II-XII intact bilaterally Lab / Micro Data Attestation: I reviewed the patient's lab results. 09/07/24 05:48 09/07/24 05:48 Labs: Laboratory Results - last 24 hr 09/07/24 05:48: WBC 11.4 H, RBC 3.93 L, Hgb 13.4, Hct 39.2, MCV 99.7 H, MCH 34.1 H, MCHC 34.2, RDW Std Deviation 45.6 H, RDW Coeff of Jeremi 12.4, Plt Count 257, MPV 10.2, Immature Gran % (Auto) 1.100 H, Neut % (Auto) 68.3, Lymph % (Auto) 18.9 L, [place] % (Auto) 10.0, Eos % (Auto) 1.1, Baso % (Auto) 0.6, Absolute Neuts (auto) 7.8 H, Absolute Lymphs (auto) 2.15, Nucleated RBC % 0, Sodium 137, Potassium 3.7, Chloride 113 H, Carbon Dioxide 18.0 L, Anion Gap 6, BUN 14, Creatinine 0.94, Estim Creat Clear Calc 81.65, Est GFR (MDRD) Af Amer 84, Est GFR (MDRD) Non-Af 69, BUN/Creatinine Ratio 14.8, Glucose 86, Calcium 8.7, Phosphorus 3.1, Magnesium 1.7, Total Bilirubin 0.70, AST 11 L, ALT 15, Alkaline Phosphatase 40 L, Total Protein 6.5, Albumin 3.2, Globulin 3.3, Albumin/Globulin Ratio 1.0 Micro: Microbiology 09/06/24 12:22 Urine, Random Urine Culture - Preliminary Culture exhibits no growth. Imaging Radiology Impression Abdomen/Bladder Ultrasound 09/07/24 17:43 IMPRESSION: Normal ultrasound of the urinary bladder. Electronically Signed: Mike Hoover MD at 13:56 EST ,
--- NOTE | 2024-09-07 17:43 | US_ITS ---
STUDY: ULTRASOUND - URINARY BLADDER REASON FOR EXAM: Female, 44 years old. Frequent UTI TECHNIQUE: Ultrasound evaluation of the urinary bladder was performed with real-time and static munoz-scale imaging. COMPARISON: None. FINDINGS: There is no right UVJ calculus. There is a non-visualization of a right ureteral jet. There is no left UVJ calculus. There is a non-visualization of a left ureteral jet. The distended volume of the urinary bladder is 249 ml. The empty volume of the urinary bladder is 15 ml. The bladder wall is within normal limits. The bladder wall measures 3 mm. There is no demonstrated bladder wall mass lesion. There are no demonstrated bladder calculi. US/Post Void Residual Bladder IMPRESSION: Normal ultrasound of the urinary bladder. Electronically Signed: Mike Hoover MD at 13:56 EST ,
[2024-09-07 18:52] VITALS: BP 128/62
[2024-09-07 21:47] VITALS: BP 140/63; PULSE 63; RESP 16; TEMP 36.6; O2SAT 97
[2024-09-07] MEDS: amLODIPine 10 MG Tablet PO (21:53)
[2024-09-08 03:51] VITALS: BP 146/73; PULSE 65; RESP 16; TEMP 36.6; O2SAT 98
[2024-09-08] MEDS: Meropenem 1 GM in 0.9% Normal Saline (100mL MB+) 100 ML IV ×2 (05:54→13:38)
[2024-09-08 07:02] LABS: Absolute Lymphocyte Count 1.53 X10^3/uL (0.83-4.51); Absolute Neutrophil Count 6.3 X10^3/uL (2.0-7.7); Basophil# 0.06 X10^3/uL; Basophil% 0.7 % (0-1); Eosinophil# 0.11 X10^3/uL; Eosinophils% 1.2 % (0-5); Hematocrit 40.2 % (37-47); Hemoglobin 13.5 g/dL (12.0-15.0); Lymphocyte # 1.53 X10^3/ul (0.83-4.51); Lymphocyte % 16.9 % (19-41); Mean Corp Hgb Conc 33.6 g/dL (32-36); Mean Corpuscular Hgb 34.2 pg (27.0-32.0); Mean Corpuscular Volume 101.8 fL (81-99); Mean Platelet Vol. 10.5 fl (6.2-12.0); Monocyte# 1.06 X10^3/uL; Monocyte% 11.7 % (0-10); NRBC Flagged by Analyzer 0 % (0-5); Neutrophil # 6.25 X10^3/uL (2.7-7.7); Neutrophil % 68.7 % (47-70); Platelet Count 243 K/mm3 (150-450); RBC Distribution Width CV 12.7 % (11.6-14.6); RBC Distribution Width SD 47.3 fl (35.1-43.9); Red Blood Count 3.95 M/mm3 (4.2-5.4); White Blood Count 9.1 K/mm3 (4.4-11.0)
[2024-09-08 07:33] LABS: Anion Gap 8 (5-15); BUN 17 mg/dL (7-18); BUN/Creat Ratio 15.9 RATIO (10-20); Calcium,Total 8.9 mg/dL (8.5-10.1); Chloride 117 mmol/L (98-107); Creatinine, Serum 1.07 mg/dL (0.55-1.02); EST Glomerular Filtration Rate 60 mL/min (>60); Est Glom Filt Rate - Afr Amer 72 mL/min (>60); Estimated Creatinine Clearance 71.73 ml/min; Glucose 99 mg/dL (74-106); Potassium 3.8 mmol/L (3.5-5.1); Sodium Level 140 mmol/L (136-145)
[2024-09-08 09:38] VITALS: BP 147/70; PULSE 69; RESP 16; TEMP 36.6; O2SAT 98
[2024-09-08 09:43] VITALS: BP 147/70; PULSE 69; RESP 16; TEMP 36.6; O2SAT 98
[2024-09-08] MEDS: Aspirin 81 MG TAB.CHEW PO (09:48)
[2024-09-08] MEDS: Carvedilol 6.25 MG Tablet PO ×2 (09:49→16:52)
[2024-09-08] MEDS: BRIMONIDINE 0.2% 5ML BOTTLE 1 DRP RIGHT EYE (09:49)
[2024-09-08] MEDS: prednisoLONE eye drops (5 mL) 1 DROP OPTH.BTL 1 DRP EACH EYE (09:50)
[2024-09-08] MEDS: AcetaZOLAMIDE 250 MG Tablet PO (09:51)
[2024-09-08] MEDS: Cholecalciferol (VIT D3) 25 MCG TABLET (1,000 UNITS) 50 MCG PO (09:51)
[2024-09-08] MEDS: Tacrolimus Anhydrous 1 MG Capsule PO (09:51)
[2024-09-08] MEDS: Escitalopram Oxalate 10 MG Tablet PO (09:51)
[2024-09-08] MEDS: Famotidine 20 MG Tablet PO (09:51)
[2024-09-08] MEDS: Acyclovir 200 MG Capsule 400 MG PO (09:52)
[2024-09-08] MEDS: Lisinopril 5 MG Tablet PO (09:52)
--- NOTE | 2024-09-08 10:21 | PCM.PN.ID ---
Physical Exam Narrative Feeling better, no dysuria, no abd pain, some diarrhea, no fever Const alert and no apparent distress General Appearance: cooperative Resp normal air movement and clear to auscultation bilaterally Cardio regular rate and regular rhythm GI soft to palpation, non-tender and non-distended Skin no rashes or lesions noted ID ID: Route of nutrition/ use of supplements: [] Nutritional Intake: [] IV Site: [] Guzman Catheter: [] Assessment & Plan Assessment/Plan (1) UTI (urinary tract infection): PLAN: ucx only small amount mixed yuli, feeling better, cdiff neg. Ok for home with po augmentin x 3days, has tolerated amox in past with no issue. Will follow prn, d/w Dr. 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
[2024-09-08 13:32] VITALS: BP 117/56; PULSE 59; RESP 16; TEMP 36.6; O2SAT 97
[2024-09-08] MEDS: Multivitamins,Therapeutic Tablet 1 TABLET PO (13:38)
[2024-09-08] MEDS: 0.9% Saline Lock 10 ML Syringe IV (13:40)
--- NOTE | 2024-09-08 14:19 | CASEMGMT ---
RN LEATHA into see patient. Pt denies needs at DC. Has a home health aide that comes Saturday - Saturday for 4 hours. Patient states she has had them for a long time and is in communication and will restart care once she is DCd from hospital. Pt in the room with patient, very attentive to patient needs. States has all the DME they need. Pt denies questions or concerns at this time.
--- NOTE | 2024-09-08 14:42 | PCM.DC ---
Discharge Instructions Diet Discharge Diet: Low fat / Low cholesterol DC O2, CPAP, BIPAP needs Home O2 Discharge instructions: No Dressing / Incision Discharge Activity: Return to Normal Activity Weight Bearing Status: Weight bearing as tolerated Dressing / Incision Call your doctor if you observe: Fever of 101 or Higher, Shortness of breath, Dizziness, Swelling in the ankles and Chest pain Follow Up Care Test Results: Test results from this visit will be discussed in further detail at your follow-up appointment, if applicable. Discharge Plan Admission Admit Date/Time: 09/07/24 12:57 Primary Reason for Your Visit: UTI Attending Provider: Shawanda Muhammad Primary Care Provider: Mary Peralta Consulting Providers: Crystla Caro; Antony Tatum Instructions Patient Instructions: ED UTIs Women Additional Instructions / Restrictions: Per your transplant team, hold Cellcept until you complete the course of antibiotics, then you can resume the Cellcept. Follow up with your renal transplant team at [facility] as scheduled. Discharge Orders/Prescriptions Prescriptions: New amoxicillin-pot clavulanate 875-125 mg tablet 1 tab PO BID Qty: 6 0RF Rx Instructions: has tolerated amoxicillin in the past without issue Continued Acetazolamide 250 mg PO BID Patient Comments: DIURETIC OR GLAUCOMA amlodipine 10 MG tablet 10 mg PO DAILY Patient Comments: BLOOD PRESSURE aspirin 81 MG tablet,chewable 81 mg PO DAILY Patient Comments: HEART atropine 1 DROP bottle 1 drp Each Eye BID Patient Comments: EYE DROP prednisolone acetate 1 DROP drops,suspension 1 drp Each Eye 4X/DAY Patient Comments: STEROID hydralazine 50 MG tablet 50 mg PO TID Patient Comments: BLOOD PRESSURE ergocalciferol (vitamin D2) [Vitamin D2] 50,000 UNIT capsule 2,000 unit PO DAILY Patient Comments: VITAMIN labetalol [Trandate] 300 MG tablet 300 mg PO BID Patient Comments: HEART escitalopram oxalate [Lexapro] 20 MG tablet 10 mg PO DAILY Patient Comments: ANTIDEPRESSANT multivitamin with folic acid [Thera] 1 TABLET tablet 1 tab PO DAILY Patient Comments: MULTI VITAMIN Brimonidine 1 drp Right Eye BID Patient Comments: BRIMONIDINE 0.2% FOR EYE carvedilol 6.25 mg tablet 6.25 mg PO Q12H famotidine 20 mg tablet 20 mg PO BID lisinopril 5 mg tablet 5 mg PO BID Patient Comments: [NO ORIGINAL SIG] valacyclovir 1 gram tablet 1,000 mg PO DAILY norethindrone-e.estradiol-iron [Blisovi Fe 09/07 (28)] 1 mg-20 mcg (21)/75 mg (7) tablet 1 tab PO DAILY tacrolimus 1 mg capsule 1 mg PO Q12H Referrals / Follow Up: Mary Peralta MD [Primary Care Provider] - Within 1 Week Disposition Disposition (needs filled in before D/C Order can be placed): Home, Self Care
--- NOTE | 2024-09-08 14:46 | PCM.DC.SUM ---
Providers Date of Admission: 09/07/24 Date of Discharge: 09/08/24 Primary Care Physician: Dr. 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 She had been on Macrobid on outpatient basis after she went to [place] about 2 weeks ago and started having the above-mentioned symptoms. His symptoms did not improve so ciprofloxacin was added on. Symptoms persisted so he came into the ED. Urinalysis showed evidence of UTI. On IV meropenem. Her CellCept was held on admission. Admitting hospitalist to discuss with her renal transplant team at [facility] and they recommended to continue on the antibiotics and to contact her transplant team with culture results ID also contacted. WBC is down to 11.4 from 20 yesterday. Urine culture showing no growth so far. Will await for confirmatory cultures. #Elevated creatinine: Improved. Creatinine is down to 0.9. Gentle hydration with IV fluids. #History of glaucoma: Has blindness in the right eye. On home eyedrops. #History of renal and pancreatic transplant Patient states the pancreatic transplant was for diabetes. CellCept held as per her transplant team at [facility] Main campus. It is documented in the H&P that she is not currently on CellCept but however patient tells me that she has been taking his CellCept and last took it 1 day prior to admission. On tacrolimus and valacyclovir. #Hypertension: on amlodipine and carvedilol as well as lisinpril #Seizure disorder: Not on any seizure meds. #GERD: On PPI #Anxiety and depression: On Lexapro DVT prophylaxis: SCDs. Medications at Discharge Home Medications Acetazolamide 250 mg PO BID 05/28/13 Brimonidine 1 drp BID 05/28/13 amlodipine 10 mg tablet 10 mg PO DAILY 05/28/13 aspirin 81 mg chewable tablet 81 mg PO DAILY 05/28/13 atropine 1 % eye drops 1 drp BID 05/28/13 ergocalciferol (vitamin D2) 1,250 mcg (50,000 unit) capsule (Vitamin D2) 2,000 unit PO DAILY VITAMIN 05/28/13 escitalopram oxalate 20 mg tablet (Lexapro) 10 mg PO DAILY 05/28/13 hydralazine 50 mg tablet 50 mg PO TID 05/28/13 labetalol 300 mg tablet (Trandate) 300 mg PO BID 05/28/13 multivitamin with folic acid 400 mcg tablet (Thera) 1 tab PO DAILY 05/28/13 prednisolone acetate 1 % eye drops,suspension 1 drp 4X/DAY 05/28/13 carvedilol 6.25 mg tablet 6.25 mg PO Q12H 09/06/24 famotidine 20 mg tablet 20 mg PO BID 09/06/24 lisinopril 5 mg tablet 5 mg PO BID 09/06/24 norethindrone 1 mg-ethinyl estradiol 20 mcg (21)-iron 75 mg (7) tablet (Blisovi Fe 09/07 (28)) 1 tab PO DAILY 09/06/24 tacrolimus 1 mg capsule, immediate-release 1 mg PO Q12H 09/06/24 valacyclovir 1 gram tablet 1,000 mg PO DAILY 09/06/24 amoxicillin 875 mg-potassium clavulanate 125 mg tablet 1 tab PO BID #6 tabs 09/08/24 Hospital Course Operations None Procedures None Summary of Care Provided Minutes Spent on Discharge: 45 Hospital Course: Patient is a 44-year-old female with a past medical history as outlined which includes history of both kidney and liver transplant. She was admitted through the ED on 09/06/2024 with a complaint of urinary frequency and dysuria with associated suprapubic discomfort. She had been in [place] about 2 weeks prior to admission which started having similar symptoms when placed on Macrobid. It symptoms did not improve so ciprofloxacin was added on. She stated that she was told by an urgent care that she had grown E. coli and other bacteria in her urine. She says she started feeling better on the Macrobid and ciprofloxacin. She came back to [place] and said she was symptom-free for about 3 days but subsequently had symptoms started again. She therefore decided to come into the ED where labs were significant for leukocytosis with WBC of 20,000. Chemistry was significant for creatinine of 1.14. Liver function test was unremarkable. Urinalysis did show evidence of UTI with elevated WBC but no bacteria. She was admitted to be managed for complicated UTI which failed outpatient treatment in the setting of kidney and pancreatic transplant. Of note patient said she was taking CellCept though this was not on her med rec. The ED doctor and admitting hospitalist discussed with the transplant team at [facility] and spoke to the on-call physician for the pancreas and kidney team. They recommended that CellCept be held and patient to be treated with antibiotics and treating team to contact them with culture results if positive. She was placed on IV meropenem. ID was consulted. Urine cultures grew mixed gram-positive organisms. Patient felt much better. I did call her transplant team at [facility] and I spoke to Dr. Mccrary seen in nephrology follow-up was probation supervisor about her results. The team recommended that patient be continued on antibiotics on discharge and to continue holding his CellCept until after she completed the antibiotics. She could then resume the CellCept. She is to follow-up with her transplant team at [facility] as scheduled. Patient seen and examined prior to discharge. She says she had had some diarrhea Earlier in the day but subsequently the diarrhea resolved. She felt much better. Review of systems otherwise negative. Labs and vitals reviewed. Home medication reviewed and reconciled. Per ID recommendation was that she be discharged home on a 3-day course of p.o. Augmentin. She was listed as having a penicillin allergy but per ID she had tolerated amoxicillin in the past with no issue. Physical Exam Const alert, oriented x3, no apparent distress and well nourished General Appearance: cooperative and comfortable Orientation / Consciousness: awake HEENT normocephalic, head/scalp atraumatic, hearing grossly normal bilaterally, moist oral mucous membranes and oropharynx normal Mouth: oral and palatal mucosa normal Eyes PERRL and EOMs intact bilaterally Neck no lymphadenopathy, supple and no JVD Lymph Lymphatic: no lymphadenopathy noted Resp normal respiratory effort, normal air movement, no retractions, no use of accessory muscles and clear to auscultation bilaterally Cardio regular rate, regular rhythm, S1 normal heart sound, S2 normal heart sound, no rub, no gallops and no clicks Cardio Narrative: 2 out of 6 systolic murmur GI normal to inspection, nondistended, normoactive bowel sounds, soft to palpation, non-tender and non-distended GI Narrative: Mild suprapubic tenderness present Extremity normal capillary refill, no clubbing, cyanosis or edema and no calf tenderness Extremity Narrative: Pedal pulses are 2+, radial pulses are 2+ General Extremity: no tenderness to palpation of joints or extremities Skin no rashes or lesions noted General Skin Exam: no breakdown Neuro oriented x3, CN's II-XII intact bilaterally, moves all extremities, no focal motor deficits and no sensory deficits noted Speech: speech normal Motor Exam: strength 5/5 throughout and general weakness Psych thought process normal, cooperative and affect normal Appearance: appropriate Weight / BMI Weight Weight: 184 lb 11.958 oz Body Mass Index (BMI) 31.7 ABG / Lab / Microbiology Data 09/08/24 06:01 09/08/24 06:01 Laboratory: Laboratory Results - last 24 hr 09/08/24 06:01: WBC 9.1, RBC 3.95 L, Hgb 13.5, Hct 40.2, MCV 101.8 H, MCH 34.2 H, MCHC 33.6, RDW Std Deviation 47.3 H, RDW Coeff of Jeremi 12.7, Plt Count 243, MPV 10.5, Immature Gran % (Auto) 0.800, Neut % (Auto) 68.7, Lymph % (Auto) 16.9 L, [place] % (Auto) 11.7 H, Eos % (Auto) 1.2, Baso % (Auto) 0.7, Absolute Neuts (auto) 6.3, Absolute Lymphs (auto) 1.53, Nucleated RBC % 0, Sodium 140, Potassium 3.8, Chloride 117 H, Carbon Dioxide 15.0 L, Anion Gap 8, BUN 17, Creatinine 1.07 H, Estim Creat Clear Calc 71.73, Est GFR (MDRD) Af Amer 72, Est GFR (MDRD) Non-Af 60, BUN/Creatinine Ratio 15.9, Glucose 99, Calcium 8.9 Microbiology: Microbiology 09/06/24 13:18 Blood Culture (Wb) - Right Wrist Blood Culture - Preliminary No growth in 48 hours. 09/06/24 13:05 Blood Culture (Wb) - Right Wrist Blood Culture - Preliminary No growth in 48 hours. 09/06/24 12:22 Urine, Random Urine Culture - Final Mixed Gram Positive Organisms 09/07/24 20:45 Stool Clostridioides difficile (PCR) - Final D/C Instructions Discharge Diet: Low fat / Low cholesterol Discharge Activity: Return to Normal Activity Weight Bearing Status: Weight bearing as tolerated Call your doctor if you observe: Fever of 101 or Higher, Shortness of breath, Dizziness, Swelling in the ankles and Chest pain DC O2, CPAP, BIPAP Needs Home O2 Discharge instructions: No Meaningful Use Info Meaningful Use Meaningful Use Diagnoses (Choose all that apply): None applicable Ischemic Stroke Statin Dosing Therapy Reference: STATIN DOSE THERAPY REFERENCE: * Patients > 75 years receive moderate or high dose statin therapy. * Patients 75 years or YOUNGER should receive HIGH intensity statin dose unless contraindicated. You will be required to document reason for non-treatment if statin daily dose does not meet guidelines. HIGH DOSE STATIN THERAPY DAILY Atorvastatin > than or = to 40 mg Rosuvastatin > than or = to 20 mg Amlodipine + Atorvastatin > than or = to 2.5/40 mg Ezetimibe + Simvastatin 10/80 mg Simvastatin 80mg Discharge Plan Admission Admit Date/Time: 09/07/24 12:57 Primary Reason for Your Visit: UTI Attending Provider: Shawanda Muhammad Primary Care Provider: Mary Peralta Consulting Providers: Crystal Caro; Antony Tatum Instructions Patient Instructions: ED UTIs Women Additional Instructions / Restrictions: Per your transplant team, hold Cellcept until you complete the course of antibiotics, then you can resume the Cellcept. Follow up with your renal transplant team at [facility] as scheduled. Discharge Orders/Prescriptions Prescriptions: New amoxicillin-pot clavulanate 875-125 mg tablet 1 tab PO BID Qty: 6 0RF Rx Instructions: has tolerated amoxicillin in the past without issue Continued Acetazolamide 250 mg PO BID Patient Comments: DIURETIC OR GLAUCOMA amlodipine 10 MG tablet 10 mg PO DAILY Patient Comments: BLOOD PRESSURE aspirin 81 MG tablet,chewable 81 mg PO DAILY Patient Comments: HEART atropine 1 DROP bottle 1 drp Each Eye BID Patient Comments: EYE DROP prednisolone acetate 1 DROP drops,suspension 1 drp Each Eye 4X/DAY Patient Comments: STEROID hydralazine 50 MG tablet 50 mg PO TID Patient Comments: BLOOD PRESSURE ergocalciferol (vitamin D2) [Vitamin D2] 50,000 UNIT capsule 2,000 unit PO DAILY Patient Comments: VITAMIN labetalol [Trandate] 300 MG tablet 300 mg PO BID Patient Comments: HEART escitalopram oxalate [Lexapro] 20 MG tablet 10 mg PO DAILY Patient Comments: ANTIDEPRESSANT multivitamin with folic acid [Thera] 1 TABLET tablet 1 tab PO DAILY Patient Comments: MULTI VITAMIN Brimonidine 1 drp Right Eye BID Patient Comments: BRIMONIDINE 0.2% FOR EYE carvedilol 6.25 mg tablet 6.25 mg PO Q12H famotidine 20 mg tablet 20 mg PO BID lisinopril 5 mg tablet 5 mg PO BID Patient Comments: [NO ORIGINAL SIG] valacyclovir 1 gram tablet 1,000 mg PO DAILY norethindrone-e.estradiol-iron [Blisovi Fe 09/07 ()] 1 mg-20 mcg (21)/75 mg (7) tablet 1 tab PO DAILY tacrolimus 1 mg capsule 1 mg PO Q12H Referrals / Follow Up: Mary Peralta MD [Primary Care Provider] - Within 1 Week Disposition Disposition (needs filled in before D/C Order can be placed): Home, Self Care Charges/Coding Visit Charges Inpatient E&M: 61856 Disch Hosp >30min
--- NOTE | 2024-09-08 15:13 | PHA.DC_ITS ---
Pharmacy [place] Med Reconciliation Pharmacy Service has performed discharge medication reconciliation for this patient. Did not certified substance abuse counselor due to enteric precautions. Medications reviewed. The patient's discharge medication list was reviewed for discrepancies and discrepancies were resolved. Medications at Discharge Home Medications Acetazolamide 250 mg PO BID 05/28/13 Brimonidine 1 drp BID 05/28/13 amlodipine 10 mg tablet 10 mg PO DAILY 05/28/13 aspirin 81 mg chewable tablet 81 mg PO DAILY 05/28/13 atropine 1 % eye drops 1 drp BID 05/28/13 ergocalciferol (vitamin D2) 1,250 mcg (50,000 unit) capsule (Vitamin D2) 2,000 unit PO DAILY VITAMIN 05/28/13 escitalopram oxalate 20 mg tablet (Lexapro) 10 mg PO DAILY 05/28/13 hydralazine 50 mg tablet 50 mg PO TID 05/28/13 labetalol 300 mg tablet (Trandate) 300 mg PO BID 05/28/13 multivitamin with folic acid 400 mcg tablet (Thera) 1 tab PO DAILY 05/28/13 prednisolone acetate 1 % eye drops,suspension 1 drp 4X/DAY 05/28/13 carvedilol 6.25 mg tablet 6.25 mg PO Q12H 09/06/24 famotidine 20 mg tablet 20 mg PO BID 09/06/24 lisinopril 5 mg tablet 5 mg PO BID 09/06/24 norethindrone 1 mg-ethinyl estradiol 20 mcg (21)-iron 75 mg (7) tablet (Blisovi Fe 09/07 ()) 1 tab PO DAILY 09/06/24 tacrolimus 1 mg capsule, immediate-release 1 mg PO Q12H 09/06/24 valacyclovir 1 gram tablet 1,000 mg PO DAILY 09/06/24 amoxicillin 875 mg-potassium clavulanate 125 mg tablet 1 tab PO BID #6 tabs 09/08/24
[2024-09-08 16:49] VITALS: BP 140/62; PULSE 66; RESP 17; TEMP 36.8; O2SAT 97
== END 2024-09-08 18:51 | disposition home or self-care (01) | DRG 690 ==
LOC: ED 16:10 → MS3 16:33
PROVIDERS: Admitting Provider Internal Medicine; Emergency Provider Emergency Medicine; PCP Family Medicine; Visit Provider Student in an Organized Health Care Education/Training Program
DX: N39.0 Urinary tract infection, site not specified (principal); Z94.83 Pancreas transplant status; Z94.0 Kidney transplant status; E10.65 Type 1 diabetes mellitus with hyperglycemia; I10 Essential (primary) hypertension; F32.A Depression, unspecified; E10.22 Type 1 diabetes mellitus with diabetic chronic kidney disease; K21.9 Gastro-esophageal reflux disease without esophagitis; H54.7 Unspecified visual loss; F41.9 Anxiety disorder, unspecified; H40.9 Unspecified glaucoma; R79.89 Other specified abnormal findings of blood chemistry; Z79.82 Long term (current) use of aspirin; Z79.899 Other long term (current) drug therapy
CPT/HCPCS: 36415; 51798; 80048; 80053; 81001; 83605; 83735; 84100; 85025; 87040; 87086; 87088; 87493; 94668; 99252; 99284; J2185; A4216; G0463; J0696